=== PATIENT | male | born 1945 | race Caucasian/White ===

== ENCOUNTER 2016-05-16 11:43 | Emergency (ER) | payer BC ==
[2016-05-16 11:58] VITALS: BMI 22.1
[2016-05-16] MEDS ORDERED: PIPERACILLIN/TAZOB 3.375 GM/50 ML PRE-DOCKED IVPB ONE (12:37)
[2016-05-16] MEDS ORDERED: VANCOMYCIN 1,000 MG in DEXTROSE 5%-WATER - 250 ML IVPB ONE (12:37)
[2016-05-16] MEDS ORDERED: ONDANSETRON 4 MG/2 ML VIAL IVPB ONE (12:37)
[2016-05-16] MEDS ORDERED: PIPERACILLIN/TAZOBACTAM 3.375 GM VIAL IVPB ONE (13:13)
[2016-05-16] MEDS ORDERED: ONDANSETRON 4 MG/2 ML VIAL ONE ×2 (13:13→17:07)
[2016-05-16] MEDS ORDERED: VANCOMYCIN 1,000 MG VIAL (RESTRICTED TO ID ONLY) ONE (13:14)
--- NOTE | 2016-05-16 13:37 | PDOC ---
History of Present Illness - General Chief Complaint: Redness To Affected Area Stated Complaint: REVISIT FOR RIGHT HAND INFECTION Time Seen by Provider: 05/16/16 12:07 History Source: Patient, Spouse Exam Limitations: No Limitations - History of Present Illness Initial Comments: 05/16/16 13:35 70 year old male with history of HLD, BPH, HTN, coronary artery disease status post triple bypass, chronic renal insufficiency with Cr baseline of 2.7, kidney transplant patient maintained at [facility], currently taking Prograf, Cellcept, Prednisone 5 mg presents to the emergency department for inability to tolerate by mouth and right-hand cellulitis. The patient was seen here on May 13 but signed out AMA at that time. He was given a prescription for Augmentin. However, the patient continued to have nausea and vomiting and has not been taking his transplant medications nor his antibiotics for the last several days. Denies fevers but reports right hand pain. Denies diarrhea and sick contacts. Past History - Past Medical History Allergies/Adverse Reactions: Allergies Allergy/AdvReac Type Severity Reaction Status Date / Time codeine Allergy Verified 04/19/16 10:42 meperidine HCl [From Demerol] Allergy Verified 04/19/16 10:42 Home Medications: Ambulatory Orders Simvastatin [Zocor] 40 mg PO HS 12/16/14 Carvedilol 3.125 mg PO BID 10/31/15 Gabapentin 300 mg PO BID 10/31/15 Mycophenolate Mofetil [Cellcept] 500 mg PO DAILY 10/31/15 Prednisone [Deltasone -] 0.5 mg PO DAILY 10/31/15 Tacrolimus [Prograf] 1.5 mg PO BID 10/31/15 Insulin NPH [Novolin N] 15 unit SQ BID 04/19/16 Amox-Tr/K Cl [Augmentin - 875Mg Tablet] 1 tab PO BID #20 tablet 05/13/16 Cardiac Disorders: Yes (PA) Diabetes: Yes Disorders: Yes (CRF,DIALYSIS) Suicide Attempt (Hx): No - Surgical History Cardiac Surgery: Yes (TRIPLE BYPASS X 3 YEARS AGO) GI Surgery: Yes (kidney transplant) - Psycho/Social/Smoking Cessation Hx Anxiety: No Suicidal Ideation: No Smoking History: Never smoked Have you smoked in the past 12 months: No If you are a former smoker, when did you quit?: 30 YEARS AGO Information on smoking cessation initiated: No Hx Alcohol Use: No Drug/Substance Use Hx: No Substance Use Type: Alcohol Review of Systems - Review of Systems Able to Perform ROS?: Yes Comments:: 05/16/16 13:37 GENERAL/CONSTITUTIONAL: No fever. +Weakness and inability to tolerate PO HEAD, EYES, EARS, NOSE AND THROAT: No change in vision. No ear pain or discharge. No sore throat. CARDIOVASCULAR: No chest pain or shortness of breath. RESPIRATORY: No cough, wheezing, or hemoptysis. GASTROINTESTINAL: +nausea, vomiting. No abdominal pain, diarrhea. GENITOURINARY: No dysuria, frequency. +decreased in urination. MUSCULOSKELETAL: No joint or muscle swelling or pain. No neck or back pain. SKIN: No rash NEUROLOGIC: No headache, vertigo, loss of consciousness, or change in strength/ sensation. ENDOCRINE: No increased thirst. No abnormal weight change. HEMATOLOGIC/LYMPHATIC: No anemia, easy bleeding, or history of blood clots. ALLERGIC/IMMUNOLOGIC: No hives or skin allergy. *Physical Exam - Vital Signs Last Vital Signs Temp Pulse Resp BP Pulse Ox 98.2 F 77 20 153/84 100 05/16/16 11:45 05/16/16 11:45 05/16/16 11:45 05/16/16 11:45 05/16/16 11:45 - Physical Exam Comments: 05/16/16 13:38 GENERAL: Awake, alert, and fully oriented,. Uncomfortable appearing. Dry mucous membranes HEAD: No signs of trauma EYES: PERRLA, EOMI, sclera anicteric, conjunctiva clear ENT: Auricles normal inspection, hearing grossly normal, nares patent, oropharynx clear without exudates. NECK: Normal ROM, supple, no lymphadenopathy, JVD, or masses LUNGS: Breath sounds equal, clear to auscultation bilaterally. No wheezes, and no crackles HEART: Regular rate and rhythm, normal S1 and S2, no murmurs, rubs or gallops ABDOMEN: Soft, nontender, normoactive bowel sounds. No guarding, no rebound. No masses EXTREMITIES: Normal range of motion, no edema. No clubbing or cyanosis. No cords, erythema, or tenderness +diffuse erythema along the dorsum of the right hand. No evidence of sausage digits. Patient able to flex and extend all digits (though has discomfort with full flexion). NEUROLOGICAL: Cranial nerves II through XII grossly intact. Normal speech, normal gait SKIN: Warm, Dry, normal turgor, no rashes or lesions noted. Heart Score/ECG Review #1 ECG reviewed & interpreted by me at: 14:10 05/16/16 16:26 NSR 80, rightward axis deviation, LFPB (new), LVH with repolarization abnormality with strain in lateral leads, particularly more apparent now than in the previous ECG in 2010, no HOME, TWI I, QTC 532 msec ED Treatment Course - LABORATORY CBC & Chemistry Diagram: 05/16/16 13:40 05/16/16 13:40 - RADIOLOGY Radiology Studies Ordered: Category Date Time Status ABDOMEN US [US] Stat Ultrasound 05/16/16 12:37 Ordered Medical Decision Making - Critical Care Time Total Critical Care Time (minutes): 45 Critical Care Statement: The care of this patient involved high complexity decision making to prevent further life threatening deterioration of the patient 's condition and/or to evalute & treat vital organ system(s) failure or risk of failure. - Medical Decision Making 05/16/16 13:40 A portion of this note was documented by scribe services under my direction. I have reviewed the details of the note, within reason, and agree with the documentation with the following case summary and management plan written by me. Patient treated in the ED. Nursing notes are reviewed and incorporated into the medical decision-making. Vital signs reviewed. Peripheral IV access obtained by the nurse, laboratory studies are drawn and sent, reviewed and interpreted by myself. Vital Signs Temp Pulse Resp BP Pulse Ox 98.2 F 77 20 153/84 100 05/16/16 11:45 05/16/16 11:45 05/16/16 11:45 05/16/16 11:45 05/16/16 11:45 This is a transplant the patient has obviously a cellulitis of the right hand and inability to tolerate by mouth. Adult sepsis protocol initiated and empiric vancomycin and Zosyn ordered. However, what is concerning is the patient's inability to tolerate by mouth and potentially concerns for acute renal injury in the setting of her chest landed patient. We'll need to touch base with [facility] renal transplant doctors regards to management. The patient also may be admitted to the hospital for further evaluation. 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 There is no evidence of flexor tenosynovitis. 05/16/16 16:25 CBC, BMP 05/16/16 13:40 05/16/16 13:40 CMP Sodium 134 mmol/L (136-145) L 05/16/16 13:40 Potassium 3.7 mmol/L (3.5-5.1) 05/16/16 13:40 Chloride 100 mmol/L (98-107) 05/16/16 13:40 Carbon Dioxide 19 mmol/L (22-28) L 05/16/16 13:40 Anion Gap 15 (8-16) 05/16/16 13:40 BUN 106 mg/dl (7-18) H* 05/16/16 13:40 Creatinine 2.7 mg/dl (0.6-1.3) H 05/16/16 13:40 Creat Clearance w eGFR 23.55 (>60) 05/16/16 13:40 Random Glucose 224 mg/dl (74-106) H 05/16/16 13:40 Lactic Acid 1.697 mmol/L (0.4-2.0) 05/16/16 13:40 Calcium 9.2 mg/dl (8.4-10.2) 05/16/16 13:40 Total Bilirubin 1.3 mg/dl (0.2-1.0) H 05/16/16 13:40 AST 30 U/L (10-42) 05/16/16 13:40 ALT 15 U/L (10-40) 05/16/16 13:40 Alkaline Phosphatase 173 U/L (32-92) H 05/16/16 13:40 Creatine Kinase 154 IU/L (38-174) 05/16/16 13:40 CK-MB (CK-2) 6.4 ng/ml (0.3-4.0) H 05/16/16 13:40 CK-MB (CK-2) Rel Index 4.1 % (0.0-5.0) 05/16/16 13:40 Troponin I 1.62 ng/ml (0.03-0.50) H* 05/16/16 13:40 Total Protein 7.2 g/dl (6.4-8.3) 05/16/16 13:40 Albumin 3.3 g/dl (3.5-5.0) L 05/16/16 13:40 05/16/16 16:27 The patient's creatnine is at baseline. Interestingly, the patient has a troponin of 1.62. I had discussed the case with DR. Hernandez ([facility]) who agrees with my management of initial dosing of vancomycin and zosyn. States no steroids at this time. Regarding the elevated troponin, he states the patient can receive aspirin and heparin. He recommmends transfer. [facility] Paige who states that this could be an ischemic demand event. He agrees with aspirin, but states can hold off from heparin and they will trend troponins. They will evaluate the patient at [facility]. The patient consents for transfer. Case was discussed with [facility] attending DR. Abena Campos who accepts patient for transfer *DC/Admit/Observation/Transfer Diagnosis at time of Disposition: Elevated troponin I level Cellulitis Qualifiers: Site of cellulitis: other site Qualified Code(s): L03.818 - Cellulitis of other sites - Discharge Dispostion Disposition: TRANSFER ACUTE CARE/OTHER HOSP Condition at time of disposition: Good - Referrals Referrals: Lucius Yadav [Primary Care Provider] - - Transfer to Acute Care Facility Receiving Facility: [facility] ([facility]) Accepting Physician:: Dr. Campos
[2016-05-16 14:11] LABS: BASOPHIL 0.3 % (0-2.0); EOSINOPHIL 0.8 % (0-4.5); MCH 23.2 pg (25.7-33.7); MCHC 30.9 g/dl (32.0-35.9); MEAN CELL VOLUME 74.9 fl (80-96); MEAN PLT VOLUME 7.4 fl (7.5-11.1); NEUTROPHILS 85.3 % (42.8-82.8); PLATELET COUNT 378 K/MM3 (134-434); RDW 15.9 % (11.9-15.9); WHITE BLOOD COUNT 7.3 K/mm3 (4.0-10.0)
[2016-05-16 14:28] LABS: ALBUMIN 3.3 g/dl (3.5-5.0); BILIRUBIN,TOTAL 1.3 mg/dl (0.2-1.0); CALCIUM 9.2 mg/dl (8.4-10.2); CREATININE 2.7 mg/dl (0.6-1.3); TOT PROT 7.2 g/dl (6.4-8.3)
[2016-05-16 14:32] LABS: ACTIVATED PTT 32.2 SECONDS (24.0-38.9)
[2016-05-16 14:36] LABS: INR 1.3 (0.82-1.09); PROTHROMBIN TIME (PATIENT) 14.2 SEC (10.2-13.0)
[2016-05-16 14:44] LABS: VENOUS PH 7.33 (7.31-7.41)
[2016-05-16 14:45] LABS: VENOUS BLOOD GAS HCO3 20.3 meq/L (22-29)
[2016-05-16 14:57] LABS: TROPONIN I (DFP) 1.62 ng/ml (0.03-0.50)
[2016-05-16 14:58] LABS: CK MB 6.4 ng/ml (0.3-4.0)
[2016-05-16 15:35] LABS: HYPOCHROMIA 1+; MICROCYTOSIS 1+; OVALOCYTES 2+; TEAR DROP CELLS 1+
[2016-05-16] MEDS ORDERED: ASPIRIN 81 MG CHEWABLE TABLETS PO ONE (15:46)
[2016-05-16] MEDS ORDERED: ASPIRIN 325 MG TABLET ONE (15:55)
[2016-05-16] MEDS ORDERED: ONDANSETRON 4 MG/2 ML VIAL IVPUSH ONE (17:06)
[2016-05-16 17:45] VITALS: BP 151/81; PULSE 86; TEMP 99
== END 2016-05-16 17:45 | disposition short-term general hospital (02) ==
LOC: FER 11:43
PROC: 3E033GC Introduction of Other Therapeutic Substance into Peripheral Vein, Percutaneous Approach (ICD-10-PCS; principal; 2016-05-16)
PROC: 3E03329 Introduction of Other Anti-infective into Peripheral Vein, Percutaneous Approach (ICD-10-PCS; 2016-05-16)
DX: L03.818 Cellulitis of other sites (principal); R79.1 Abnormal coagulation profile; I25.2 Old myocardial infarction; Z87.891 Personal history of nicotine dependence; Z99.2 Dependence on renal dialysis; Z94.0 Kidney transplant status; E11.22 Type 2 diabetes mellitus with diabetic chronic kidney disease; N18.9 Chronic kidney disease, unspecified; Z95.1 Presence of aortocoronary bypass graft; Z79.4 Long term (current) use of insulin
CPT/HCPCS: 76775-TC; 80053; 82550; 82553; 82803; 83605; 84484; 85025; 85610; 85730; 86850; 86900; 86901; 87040; 96365; 96375; 96376; 99285-25